=== PATIENT | male | born 1955 | race Caucasian/White ===

== ENCOUNTER 2018-01-14 12:46 | Outpatient (CLI) | payer OTHER ==
--- NOTE | 2018-01-14 14:38 | ULT ---
ULTRASOUND WITH DOPPLER DUPLEX VENOUS LOWER EXTREMITY RIGHT: CPT: 71712 ICD-10-PCS: B54D HISTORY: Pain, edema of right lower extremity. TECHNIQUE: Color flow Doppler, spectral waveform analysis of pulsed Doppler, and guaman-scale imaging with wilfredo malika and augmentation, were used to evaluate the bilateral common femoral, femoral, popliteal, portable feed mill operator ior tibial, and superficial femoral, veins; and the proximal portions of the profunda femoral and gre ater saphenous, veins. FINDINGS: Appropriate compressibility and flow within the imaged deep vein system of the right lower extremity. There is evidence of thrombus seen within the superficial vein system involving the greater saphenous vein to the level of the mid leg. IMPRESSION: 1. No deep vein thrombosis of right lower extremity is demonstrated. 2. Evidence of superficial vein thrombus. POS: [facility]
== END 2018-01-14 12:47 | disposition home or self-care (01) ==
LOC: SCSULT 12:46
PROVIDERS: ATTEND Orthopaedic Surgery
DX: M17.11 Unilateral primary osteoarthritis, right knee (principal); I82.811 Embolism and thrombosis of superficial veins of right lower extremity

== ENCOUNTER 2018-04-15 10:41 | Outpatient (CLI) | payer OTHER | END 2018-04-15 10:42 | disposition home or self-care (01) | LOC: CTENTCT 10:41 | PROVIDERS: ATTEND Otolaryngology Plastic Surgery within the Head & Neck | DX: J01.81 Other acute recurrent sinusitis (principal) | CPT/HCPCS: 70486 ==

== ENCOUNTER 2021-06-26 05:07 | Inpatient (IN) | payer BC ==
[2021-06-26 05:33] LABS: #Lymphocytes 0.6 thou/uL (1.20-3.40); #Monocytes 0.2 thou/uL (0.11-0.59); #Neutrophils 5.8 thou/uL (1.40-6.50); %Basophils 0.2 % (0.0-1.0); %Eosinophils 0.5 % (0.0-10.0); %Lymphocytes 8.5 % (21.0-51.0); %Neutrophils 87.8 % (42.0-75.0); Hemoglobin 16.3 g/dL (14.0-18.0); Mean Corpuscular HGB CONC 32.7 g/dL (32.0-36.0); Mean Corpuscular Hemoglobin 32.7 pg (27.0-31.0); Mean Platelet Volume 6.6 fL (7.4-10.4); Platelet Count 147 thou/uL (130-400); RBC Distribution Width 12.9 % (11.5-14.5); Red Blood Cell (RBC) Count 4.98 mill/uL (4.70-6.10); White Blood Cell (WBC) Count 6.7 thou/uL (4.8-10.8)
[2021-06-26 05:56] LABS: ALT (SGPT) 17 U/L (8-55); AST (SGOT) 14 U/L (5-34); Albumin 3.6 g/dL (3.4-4.8); Alkaline Phosphatase 75 U/L (40-110); Anion Gap 13 mmol/L (10-20); BUN (Urea Nitrogen) 15 mg/dL (8.4-25.7); Bilirubin, Total 1.7 mg/dL (0.2-1.2); Calc. Creatinine Clearance 0 mL/min (70-130); Calcium 8.9 mg/dL (7.8-10.44); Carbon Dioxide 27 mmol/L (23-31); Chloride 103 mmol/L (98-107); Globulin 2.9 g/dL (2.4-3.5); Glucose 173 mg/dL (80-115); Potassium 3.7 mmol/L (3.5-5.1); Protein, Total 6.5 g/dL (5.8-8.1); Sodium 139 mmol/L (136-145)
[2021-06-26] MEDS ORDERED: Cefepime 2 GM VIAL ONE (06:18)
[2021-06-26 06:44] LABS: Bilirubin Negative (Negative); Blood, Urine Negative (Negative); Clarity Clear (Clear); Glucose, Urine (Dipstick) 200 mg/dL (Negative); Ketone, Urine Negative (Negative); Leukocyte Negative Leu/uL (Negative); Nitrite Negative (Negative); Protein, Urine (Dipstick) Negative (Neg-Trace); Specific Gravity, Urine 1.024 (1.002-1.036)
[2021-06-26] MEDS ORDERED: Vancomycin 1 GM/200 ML BAG ONE (06:58)
[2021-06-26 07:23] LABS: SARS-CoV-2 NAA Rapid Test Not Detected (NotDetected)
[2021-06-26] MEDS ORDERED: Acetaminophen 500 MG TAB ONE (07:38)
[2021-06-26] MEDS ORDERED: Iopamidol 370 76% 100 ML VIAL ONE (08:53)
[2021-06-26 08:58] VITALS: BMI 46.5
[2021-06-26] MEDS ORDERED: Acetaminophen 325 MG TAB PO PRN (09:13)
[2021-06-26] MEDS ORDERED: Pantoprazole 40 MG VIAL IVP SCH (09:45)
[2021-06-26 10:08] LABS: Lactic Acid 1.5 mmol/L (0.5-2.2)
[2021-06-26 10:17] LABS: Troponin I Less than 0.010 ng/mL (< 0.028)
[2021-06-26] MEDS ORDERED: Piperacillin/Tazobactam 3.375 GM in Sodium Chloride 0.9% 100 ML IVPB SCH ×2 (12:00→14:00)
[2021-06-26 12:11] LABS: Troponin I Less than 0.010 ng/mL (< 0.028)
[2021-06-26] MEDS: Sodium Chloride 0.9% 1,000 ML IV SCH ×2 (12:14→14:46)
[2021-06-26] MEDS ORDERED: Allopurinol 300 MG TAB PO SCH (14:15)
[2021-06-26] MEDS ORDERED: Loratadine 10 MG TAB PO PRN (14:31)
[2021-06-26] MEDS ORDERED: Loratadine 10 MG TAB PO SCH (14:45)
[2021-06-26] MEDS ORDERED: HYDROcodone/Acetaminophen 5/325 mg Tablet PO PRN (15:43)
[2021-06-26] MEDS: Piperacillin/Tazobactam 3.375 GM in Sodium Chloride 0.9% 100 ML IVPB SCH (21:26)
[2021-06-27] MEDS: Piperacillin/Tazobactam 3.375 GM in Sodium Chloride 0.9% 100 ML IVPB SCH (05:43)
[2021-06-27 05:48] LABS: Anion Gap 10 mmol/L (10-20); BUN (Urea Nitrogen) 15 mg/dL (8.4-25.7); Calc. Creatinine Clearance 150 mL/min (70-130); Carbon Dioxide 25 mmol/L (23-31); Chloride 110 mmol/L (98-107); Glucose 94 mg/dL (80-115); Potassium 3.6 mmol/L (3.5-5.1); Sodium 141 mmol/L (136-145)
[2021-06-27 06:17] LABS: #Basophils 0.1 thou/uL (0.0-0.2); #Eosinphils 0.2 thou/uL (0.0-0.7); #Lymphocytes 1.4 thou/uL (1.20-3.40); #Monocytes 0.7 thou/uL (0.11-0.59); #Neutrophils 5.9 thou/uL (1.40-6.50); %Basophils 0.8 % (0.0-1.0); %Eosinophils 2.2 % (0.0-10.0); %Monocytes 8.1 % (0.0-10.0); %Neutrophils 71.9 % (42.0-75.0); Mean Corpuscular HGB CONC 32.7 g/dL (32.0-36.0); Mean Corpuscular Hemoglobin 33.4 pg (27.0-31.0); Mean Platelet Volume 6.9 fL (7.4-10.4); Platelet Count 114 thou/uL (130-400); Platelet Morphology Comment Appears Decreased; RBC Distribution Width 13.1 % (11.5-14.5); Red Blood Cell (RBC) Count 3.88 mill/uL (4.70-6.10); White Blood Cell (WBC) Count 8.3 thou/uL (4.8-10.8)
[2021-06-27] MEDS ORDERED: Losartan 25 MG TAB PO SCH (09:00)
[2021-06-27] MEDS ORDERED: LACTINEX 1 TAB PO SCH (09:00)
[2021-06-27] MEDS ORDERED: Atorvastatin Calcium 10 MG TAB PO SCH (09:00)
[2021-06-27] MEDS ORDERED: Venlafaxine HCl XR 75 MG CAP PO SCH (09:00)
[2021-06-27] MEDS ORDERED: Rivaroxaban 10 MG TAB PO SCH (09:00)
[2021-06-27] MEDS ORDERED: Allopurinol 300 MG TAB PO SCH (09:00)
[2021-06-27] MEDS ORDERED: Hydrochlorothiazide 25 MG TAB PO SCH (09:00)
[2021-06-27 11:08] VITALS: BP 141/88; TEMP 98.1
== END 2021-06-27 13:00 | disposition home or self-care (01) | DRG 177 ==
LOC: ERS 05:07 → SUATTDRO 05:07 → 2NO 06:58
PROVIDERS: ADMIT Internal Medicine; ATTEND Internal Medicine
DX: J69.0 Pneumonitis due to inhalation of food and vomit (principal); J96.01 Acute respiratory failure with hypoxia; Z68.42 Body mass index [BMI] 45.0-49.9, adult; Z20.822 Contact with and (suspected) exposure to COVID-19; G47.33 Obstructive sleep apnea (adult) (pediatric); K21.9 Gastro-esophageal reflux disease without esophagitis; E66.01 Morbid (severe) obesity due to excess calories; Z98.84 Bariatric surgery status; Z99.89 Dependence on other enabling machines and devices; Z86.718 Personal history of other venous thrombosis and embolism; Z79.899 Other long term (current) drug therapy; Z86.010 Personal history of colon polyps; Z86.39 Personal history of other endocrine, nutritional and metabolic disease; Z98.890 Other specified postprocedural states; Z81.2 Family history of tobacco abuse and dependence
CPT/HCPCS: 36415; 71045; 71275; 74174; 80048; 80053; 81001; 81003; 83605; 83880; 84153; 84484; 85025; 87040; 87081; 93005; 96365; 96367; C9113; J0692; J2543; J3370; J3490; J7050; Q9967; U0002

== ENCOUNTER 2022-12-05 10:54 | Outpatient (CLI) | payer BC | END 2022-12-05 10:55 | disposition home or self-care (01) | LOC: SCSRAD 10:54 | PROVIDERS: ATTEND Family Medicine | DX: R06.02 Shortness of breath (principal) | CPT/HCPCS: 71046 ==

== ENCOUNTER 2022-12-23 20:13 | Inpatient (IN) | payer BC ==
[2022-12-23 21:05] LABS: #Eosinphils 0.2 thou/uL (0.0-0.7); #Monocytes 0.6 thou/uL (0.11-0.59); #Neutrophils 3.4 thou/uL (1.40-6.50); %Basophils 0.7 % (0.0-1.0); %Eosinophils 2.9 % (0.0-10.0); %Lymphocytes 27.5 % (21.0-51.0); %Monocytes 9.9 % (0.0-10.0); %Neutrophils 58.8 % (42.0-75.0); Hematocrit 45.3 % (42.0-52.0); Hemoglobin 15.3 g/dL (14.0-18.0); Mean Corpuscular HGB CONC 33.8 g/dL (32.0-36.0); Mean Corpuscular Hemoglobin 33.3 pg (27.0-31.0); Mean Corpuscular Volume 98.7 fl (78.0-98.0); Mean Platelet Volume 9.1 fL (7.4-10.4); Platelet Count 130 10x3/uL (130-400); RBC Distribution Width 13.7 % (11.5-14.5); Red Blood Cell (RBC) Count 4.59 mill/uL (4.70-6.10); White Blood Cell (WBC) Count 5.8 10x3/uL (4.8-10.8)
[2022-12-23 21:20] LABS: PTT 27.5 sec (22.9-36.1)
[2022-12-23 21:27] LABS: INR-International Normal Ratio 1.3; Prothrombin Time 16.9 sec (12.0-14.7)
[2022-12-23] MEDS ORDERED: Heparin 25,000 units/D5W 500 ML ONE (21:27)
[2022-12-23 21:51] LABS: ALT (SGPT) 12 U/L (8-55); AST (SGOT) 17 U/L (5-34); Albumin 3.7 g/dL (3.4-4.8); Alkaline Phosphatase 68 U/L (40-110); Anion Gap 12 mmol/L (10-20); BUN (Urea Nitrogen) 20 mg/dL (8.4-25.7); Calc. Creatinine Clearance 0 mL/min (70-130); Carbon Dioxide 27 mmol/L (23-31); Chloride 107 mmol/L (98-107); Estimated GFR 67; Globulin 2.6 g/dL (2.4-3.5); Glucose 84 mg/dL (80-115); Lipase 27 U/L (8-78); Magnesium 2.4 mg/dL (1.6-2.6); Protein, Total 6.3 g/dL (5.8-8.1); Sodium 142 mmol/L (136-145)
[2022-12-23 21:52] LABS: Troponin I Less than 0.010 ng/mL (< 0.028)
[2022-12-23] MEDS ORDERED: Ondansetron PF 4 MG/2 ML Vial IVP PRN (22:55)
[2022-12-23] MEDS ORDERED: Acetaminophen 650 MG Suppository PR PRN (22:55)
[2022-12-23] MEDS ORDERED: Ondansetron ODT 4 MG TAB PO PRN (22:55)
[2022-12-23] MEDS ORDERED: Glucagon 1 MG/ML KIT IM PRN (22:59)
[2022-12-23] MEDS ORDERED: Dextrose 50% Abboject 50 ML SYRINGE SLOW IVP PRN (22:59)
[2022-12-23] MEDS ORDERED: Dextrose 5% in Water 1,000 ML IV PRN (22:59)
[2022-12-23] MEDS ORDERED: HumaLOG 300 UNITS/3 ML VIAL SC PRN ×2 (22:59)
[2022-12-24] MEDS ORDERED: Electrolyte Replacement Protocol 1 EACH FS SCH (00:11)
[2022-12-24] MEDS ORDERED: Heparin 10,000 UNITS/ 10 ML VIAL SLOW IVP SCH (00:45)
[2022-12-24] MEDS ORDERED: Heparin 25,000 units/D5W 500 ML IVPB SCH (00:45)
[2022-12-24 01:32] VITALS: BMI 43.8
[2022-12-24 04:31] LABS: #Eosinphils 0.2 thou/uL (0.0-0.7); #Monocytes 0.6 thou/uL (0.11-0.59); #Neutrophils 3.9 thou/uL (1.40-6.50); %Basophils 0.7 % (0.0-1.0); %Eosinophils 3.4 % (0.0-10.0); %Lymphocytes 22.8 % (21.0-51.0); %Monocytes 9.8 % (0.0-10.0); %Neutrophils 63.1 % (42.0-75.0); Hematocrit 42.5 % (42.0-52.0); Hemoglobin 13.9 g/dL (14.0-18.0); Mean Corpuscular HGB CONC 32.7 g/dL (32.0-36.0); Mean Corpuscular Hemoglobin 32.9 pg (27.0-31.0); Mean Corpuscular Volume 100.7 fl (78.0-98.0); Mean Platelet Volume 9.7 fL (7.4-10.4); Platelet Count 110 10x3/uL (130-400); Red Blood Cell (RBC) Count 4.22 mill/uL (4.70-6.10); White Blood Cell (WBC) Count 6.1 10x3/uL (4.8-10.8)
[2022-12-24 04:54] LABS: Anion Gap 13 mmol/L (10-20); BUN (Urea Nitrogen) 18 mg/dL (8.4-25.7); Calc. Creatinine Clearance 124 mL/min (70-130); Calcium 8.1 mg/dL (7.8-10.44); Carbon Dioxide 19 mmol/L (23-31); Chloride 111 mmol/L (98-107); Estimated GFR 78; Glucose 88 mg/dL (80-115); Potassium 3.5 mmol/L (3.5-5.1); Sodium 139 mmol/L (136-145)
[2022-12-24 05:01] LABS: PTT 188.1 sec (22.9-36.1)
[2022-12-24] MEDS ORDERED: Potassium Chloride 20 MEQ TAB PO SCH (08:00)
[2022-12-24] MEDS ORDERED: Communication Order-Pharmacy FS SCH (09:11)
[2022-12-24 09:25] LABS: Hemoglobin 14.1 g/dL (14.0-18.0)
[2022-12-24 09:26] LABS: Platelet Count 123 10x3/uL (130-400)
[2022-12-24] MEDS: Famotidine 20 MG TAB PO SCH ×2 (09:39→20:03)
[2022-12-24] MEDS: Acetaminophen 325 MG TAB PO PRN ×3 (11:38→22:57)
[2022-12-24] MEDS ORDERED: Senokot 8.6 MG TAB PO PRN (13:29)
[2022-12-24] MEDS ORDERED: Bisacodyl 5 MG TAB PO PRN (13:29)
[2022-12-24 16:38] VITALS: BP 121/72
[2022-12-25 07:31] VITALS: TEMP 97.4
[2022-12-25] MEDS ORDERED: Allopurinol 300 MG TAB PO SCH (09:00)
[2022-12-25] MEDS ORDERED: Bupropion 150 MG XL TAB PO SCH (09:00)
[2022-12-25] MEDS ORDERED: Apixaban 5 MG TAB PO SCH (09:00)
[2022-12-25 09:41] LABS: Anion Gap 11 mmol/L (10-20); BUN (Urea Nitrogen) 14 mg/dL (8.4-25.7); Calc. Creatinine Clearance 114 mL/min (70-130); Calcium 8.2 mg/dL (7.8-10.44); Carbon Dioxide 24 mmol/L (23-31); Chloride 109 mmol/L (98-107); Estimated GFR 70; Glucose 88 mg/dL (80-115); Potassium 3.9 mmol/L (3.5-5.1); Sodium 140 mmol/L (136-145)
[2022-12-25] MEDS: Famotidine 20 MG TAB PO SCH (10:18)
== END 2022-12-25 12:05 | disposition home or self-care (01) | DRG 176 ==
LOC: ERS 20:13 → IMCU/EMU 22:46
PROVIDERS: ADMIT Student in an Organized Health Care Education/Training Program; ATTEND Internal Medicine
DX: I26.99 Other pulmonary embolism without acute cor pulmonale (principal); Z68.41 Body mass index [BMI] 40.0-44.9, adult; I82.431 Acute embolism and thrombosis of right popliteal vein; K21.9 Gastro-esophageal reflux disease without esophagitis; E66.01 Morbid (severe) obesity due to excess calories; Z20.822 Contact with and (suspected) exposure to COVID-19; E11.9 Type 2 diabetes mellitus without complications; N20.0 Calculus of kidney; G47.00 Insomnia, unspecified; I10 Essential (primary) hypertension; E78.5 Hyperlipidemia, unspecified; G47.33 Obstructive sleep apnea (adult) (pediatric); Z79.899 Other long term (current) drug therapy; Z98.890 Other specified postprocedural states; Z98.84 Bariatric surgery status
CPT/HCPCS: 36415; 36416; 71045; 80048; 80053; 83690; 83735; 83880; 84484; 85025; 85610; 85730; 93005; 93306; 93970; 96365; 96366; J1644; J1650

== ENCOUNTER 2023-07-17 07:54 | Outpatient (CLI) | payer BC | END 2023-07-17 07:55 | disposition home or self-care (01) | LOC: SCSRAD 07:54 | PROVIDERS: ATTEND Family Medicine | DX: S89.91XA Unspecified injury of right lower leg, initial encounter (principal) ==

== ENCOUNTER 2024-03-22 09:17 | Emergency (ER) | payer BC ==
[2024-03-22 10:31] LABS: Bacteria/HPF None Seen HPF (None Seen); Bilirubin Negative (Negative); Blood, Urine 3+ (Negative); CAUTI Indications for Culture Dysuria,urgency,freq; Clarity Extra Turbid (Clear); Glucose, Urine (Dipstick) Normal (Negative); Ketone, Urine Negative (Negative); Leukocyte 25 Leu/uL (Negative); Nitrite Negative (Negative); Protein, Urine (Dipstick) 50 mg/dL (Neg-Trace); RBC/HPF Greater than 50 HPF (0-3); Specific Gravity, Urine 1.015 (1.002-1.036); Squamous Epithelial None Seen HPF (0-3); Urobilinogen Normal mg/dL (Less than 2); WBC/HPF 0-3 HPF (0-3); pH, Urine 7.5 (5.0-9.0)
[2024-03-22 10:33] LABS: Urine Culture Reflex No No
[2024-03-22 10:41] LABS: #Basophils 0.04 10x3/uL (0.0-0.2); %Basophils 1.1 % (0.0-1.0); %Eosinophils 2.7 % (0.0-10.0); %Monocytes 9.1 % (0.0-10.0); %Neutrophils 65.8 % (42.0-75.0); Hemoglobin 15.5 g/dL (14.0-18.0); Mean Corpuscular HGB CONC 35.2 g/dL (32.0-36.0); Mean Corpuscular Hemoglobin 34.3 pg (27.0-31.0); Mean Corpuscular Volume 97.3 fL (78.0-98.0); Mean Platelet Volume 9.1 fL (7.4-10.4); Platelet Count 117 10x3/uL (130-400); RBC Distribution Width 13.3 % (11.5-14.5); Red Blood Cell (RBC) Count 4.52 mill/uL (4.70-6.10)
[2024-03-22 10:50] LABS: ALT (SGPT) 8 U/L (8-55); AST (SGOT) 13 U/L (5-34); Albumin 3.6 g/dL (3.4-4.8); Alkaline Phosphatase 60 U/L (40-110); Anion Gap 14 mmol/L (10-20); BUN (Urea Nitrogen) 12 mg/dL (8.4-25.7); Bilirubin, Total 1.9 mg/dL (0.2-1.2); Calc. Creatinine Clearance 0 mL/min (70-130); Calcium 8.8 mg/dL (7.8-10.44); Carbon Dioxide 24 mmol/L (23-31); Chloride 104 mmol/L (98-107); Estimated GFR 72; Globulin 2.6 g/dL (2.4-3.5); Glucose 75 mg/dL (80-115); Potassium 3.5 mmol/L (3.5-5.1); Protein, Total 6.2 g/dL (5.8-8.1); Sodium 138 mmol/L (136-145)
[2024-03-22 11:03] LABS: INR-International Normal Ratio 1.2; Prothrombin Time 15.6 sec (12.0-14.7)
== END 2024-03-22 13:24 | disposition home or self-care (01) ==
LOC: ERS 09:17
DX: N20.0 Calculus of kidney (principal); I10 Essential (primary) hypertension; E11.9 Type 2 diabetes mellitus without complications
CPT/HCPCS: 36415; 36416; 74176; 80053; 81001; 85025; 85610; 85730; 86850; 86900; 86901

== ENCOUNTER 2025-03-08 08:30 | Outpatient (CLI) | payer BC ==
[2025-03-08 10:53] LABS: Bacteria/HPF None Seen HPF (None Seen); Glucose, Urine (Dipstick) Normal (Negative); Leukocyte Negative Leu/uL (Negative); Protein, Urine (Dipstick) Negative (Neg-Trace); RBC/HPF 0-3 HPF (0-3); Specific Gravity, Urine 1.018 (1.002-1.036); WBC/HPF 0-3 HPF (0-3)
[2025-03-08 10:58] LABS: INR-International Normal Ratio 1.2; Prothrombin Time 15.2 sec (12.0-14.7)
[2025-03-08 11:01] LABS: Anion Gap 11 mmol/L (10-20); BUN (Urea Nitrogen) 19 mg/dL (8.4-25.7); Calc. Creatinine Clearance 0 mL/min (70-130); Calcium 9.0 mg/dL (7.8-10.44); Carbon Dioxide 29 mmol/L (23-31); Chloride 106 mmol/L (98-107); Glucose 83 mg/dL (80-115); Potassium 4.0 mmol/L (3.5-5.1); Sodium 142 mmol/L (136-145)
[2025-03-08 11:19] LABS: Hematocrit 45.1 % (42.0-52.0); Hemoglobin 14.4 g/dL (14.0-18.0); Mean Corpuscular Hemoglobin 31.2 pg (27.0-31.0); Mean Corpuscular Volume 97.6 fL (78.0-98.0); Platelet Count 117 10x3/uL (130-400); Red Blood Cell (RBC) Count 4.62 mill/uL (4.70-6.10); White Blood Cell (WBC) Count 4.63 10x3/uL (4.8-10.8)
[2025-03-08 11:41] LABS: Burr Cells MODERATE= 6-15 cells HPF (0-1); Giant Platelets 1.9 % (0-5); Macrocytosis SLIGHT = 6-15 cells HPF (0-5); Platelet Adequacy Comment Platelets Decreased; Poikilocytosis SLIGHT = 6-15 cells HPF (0-5); Polychromasia SLIGHT = 2-3 cells HPF (0-2); Smudge Cells 9.6 %
== END 2025-03-08 08:31 | disposition home or self-care (01) ==
LOC: LABBT 08:30
PROVIDERS: ATTEND Orthopaedic Surgery
DX: Z01.818 Encounter for other preprocedural examination (principal); M17.11 Unilateral primary osteoarthritis, right knee
CPT/HCPCS: 71046; 80048; 81001; 85025; 85610; 87081; 93005; 93010

== ENCOUNTER 2025-03-08 09:25 | Outpatient (CLI) | payer BC | END 2025-03-08 09:26 | disposition home or self-care (01) | LOC: CT 09:25 | PROVIDERS: ATTEND Orthopaedic Surgery | DX: Z01.818 Encounter for other preprocedural examination (principal); M17.11 Unilateral primary osteoarthritis, right knee ==

== ENCOUNTER 2025-03-15 09:39 | Observation (INO) | payer BC ==
[2025-03-08 08:50] VITALS: BMI 35.2
[2025-03-15] MEDS ORDERED: fentaNYL PF 100 MCG/2 ML SYRINGE ONE ×2 (10:17→13:35)
[2025-03-15] MEDS ORDERED: Lidocaine 1% PF 5 ML VIAL ONE (10:17)
[2025-03-15] MEDS ORDERED: Ropivacaine 0.5% HCl/PF (150 MG/30 ML VIAL) ONE (10:35)
[2025-03-15] MEDS ORDERED: Bupivacaine 0.25% HCL 30 ML VIAL ONE (10:38)
[2025-03-15] MEDS ORDERED: CEFAZOLIN 2 GM VIAL ONE (10:38)
[2025-03-15] MEDS ORDERED: Tranexamic Acid 1,000 MG/10 ML VIAL ONE ×2 (10:47→13:20)
[2025-03-15] MEDS ORDERED: Vancomycin HCl 1.5 GM VIAL ONE (11:08)
[2025-03-15] MEDS ORDERED: Ropivacaine 0.2% 550 ML 550 ML NERVE BLCK SCH ×2 (11:45→12:15)
[2025-03-15] MEDS ORDERED: HYDROcodone/Acetaminophen 10/325 mg Tablet PO PRN ×3 (11:45→12:15)
[2025-03-15] MEDS ORDERED: Ondansetron PF 4 MG/2 ML Vial IVP PRN ×3 (11:45→13:05)
[2025-03-15] MEDS ORDERED: PHENYLEPHRINE-NS 100 MCG/ML 10 ML SYRINGE ONE (11:46)
[2025-03-15] MEDS ORDERED: Ondansetron PF 4 MG/2 ML Vial ONE (11:51)
[2025-03-15] MEDS ORDERED: HYDROmorphone 2 MG/ML VIAL ONE (12:05)
[2025-03-15] MEDS ORDERED: Acetaminophen 325 MG TAB PO PRN (13:05)
[2025-03-15] MEDS ORDERED: diphenhydrAMINE 25 MG CAP PO PRN (13:05)
[2025-03-15] MEDS ORDERED: HYDROmorphone 0.5 MG/0.5 ML SYRINGE ONE (13:35)
[2025-03-15 16:08] VITALS: BMI 35.2
[2025-03-15] MEDS: Ketorolac Tromethamine 30 MG (1 mL) VIAL IVP SCH (17:31)
[2025-03-15] MEDS ORDERED: Ketorolac Tromethamine 30 MG (1 mL) VIAL IVP SCH (18:00)
[2025-03-15] MEDS: HYDROcodone/Acetaminophen 10/325 mg Tablet PO PRN (18:28)
[2025-03-15] MEDS: Pantoprazole 40 MG DR.TAB PO SCH (20:42)
[2025-03-15] MEDS: Aspirin 81 mg Enteric Coated Tablet PO SCH (20:42)
[2025-03-15] MEDS: Ferrous Gluconate 324 MG TAB PO SCH (20:42)
[2025-03-15] MEDS: Senokot S 8.6-50 MG TAB PO SCH (20:42)
[2025-03-15] MEDS ORDERED: Vortioxetine Hydrobromide [Trintellix] 10 MG Tablet PO SCH (21:00)
[2025-03-15] MEDS ORDERED: Non-Formulary Item 1 EACH (Fexofenadine Hcl [Fexofenadine Hcl] 180 MG Tablet) PO SCH (21:00)
[2025-03-16 05:05] LABS: Hematocrit 38.6 % (42.0-52.0); Hemoglobin 12.3 g/dL (14.0-18.0); Mean Corpuscular Hemoglobin 31.3 pg (27.0-31.0); Mean Corpuscular Volume 98.2 fL (78.0-98.0); Platelet Count 104 10x3/uL (130-400); Red Blood Cell (RBC) Count 3.93 mill/uL (4.70-6.10); White Blood Cell (WBC) Count 9.10 10x3/uL (4.8-10.8)
[2025-03-16 08:11] VITALS: TEMP 98.5
[2025-03-16] MEDS: Cyanocobalamin (Vitamin B-12) 1,000 MCG TAB PO SCH (08:49)
[2025-03-16] MEDS: Apixaban 5 MG TAB PO SCH (08:49)
[2025-03-16] MEDS: Multivitamin W/ Minerals 1 TAB PO SCH (08:50)
[2025-03-16] MEDS: Allopurinol 300 MG TAB PO SCH (08:50)
[2025-03-16] MEDS: Cholecalciferol 1,000 UNITS (25 MCG) TAB PO SCH (08:51)
[2025-03-16] MEDS: Acidophilus Lactiobac CAPSULE PO SCH (08:51)
[2025-03-16] MEDS: Folic Acid 1 MG TAB PO SCH (08:52)
[2025-03-16 11:18] VITALS: BP 99/59
== END 2025-03-16 12:13 | disposition home or self-care (01) ==
LOC: SDC 09:39 → SURG A 16:38
PROVIDERS: ADMIT Orthopaedic Surgery; ATTEND Orthopaedic Surgery
PROC: 0SRC0JZ Replacement of Right Knee Joint with Synthetic Substitute, Open Approach (ICD-10-PCS; principal; 2025-03-15)
PROC: 3E0T3BZ Introduction of Anesthetic Agent into Peripheral Nerves and Plexi, Percutaneous Approach (ICD-10-PCS; 2025-03-15)
DX: M17.11 Unilateral primary osteoarthritis, right knee (principal); I10 Essential (primary) hypertension; E11.9 Type 2 diabetes mellitus without complications; G47.33 Obstructive sleep apnea (adult) (pediatric); Z98.84 Bariatric surgery status; Z96.652 Presence of left artificial knee joint; Z98.890 Other specified postprocedural states; Z79.85 Long-term (current) use of injectable non-insulin antidiabetic drugs
CPT/HCPCS: 0055T; 27447; 64448; 36415; 85027; A4306; C1713; C1776; C1889; J0665; J1100; J1171; J1885; J2250; J2405; J2795; J3010; J7030